=== PATIENT | female | born 1960 | race Caucasian/White ===

== ENCOUNTER → 2017-06-30 | Outpatient (CLI) | payer OTHER, BC ==
[~2017-06-30] MED LIST: ACHD5005 PO; CEFD300C PO; ESTR1TAB24 PO
== END ==
LOC: RAD 07:24
PROVIDERS: ATTEND Nurse Practitioner
DX: Z12.31 Encounter for screening mammogram for malignant neoplasm of breast (principal)
CPT/HCPCS: 77067

== ENCOUNTER → 2018-07-05 | Outpatient (CLI) | payer OTHER, BC ==
--- NOTE | 2018-07-05 13:23 | Diagnostic Imaging Report ---
INDICATION: Screening for osteoporosis. COMPARISON: None. FINDINGS: AP Spine L1-L4: [BMD (g/cm2): 1.210] [T-Score: 0.1] [Z-Score: 0.3] [BMD Previous: ] [BMD % Change: ] LT Hip Neck: [BMD (g/cm2): 1.117] [T-Score: 0.6] [Z-Score: 1.2] LT Hip Total: [BMD (g/cm2):1.225] [T-Score:1.7] [Z-Score: 2.0] [BMD Previous: ] [BMD % Change: ] RT Hip Neck: [BMD (g/cm2):1.105] [T-Score:0.5] [Z-Score:1.1] RT Hip Total: [BMD (g/cm2):1.153] [T-score:1.2] [Z-Score:1.4] [BMD Previous: ] [BMD % Change: ] *Indicates significant change from prior examination based on 95% confidence level. World Health Organization criteria for BMD interpretation classify patients as Normal (T-score at or above -1.0), Osteopenic (T-score between -1.0 and -2.5) or Osteoporotic (T-score at or below -2.5). LIMITATIONS AND MODIFICATION: None. FRACTURE RISK (FRAX SCORE): The ten year probability of (%): Major Osteoporotic Fracture: [ ] Hip Fracture: [ ] IMPRESSION: 1. The bone mineral density of the hips and spine is within normal limits. 2. See below National Osteoporosis Foundation guidelines on when to potentially initiate pharmacologic therapy. Based on the National Osteoporosis Foundation Guidelines, pharmacologic treatment should be initiated in any of the following, unless clinical conditions suggest otherwise: * Any patient with prior fragility fracture of the hip or vertebrae. A spine fracture indicates 5X risk for subsequent spine fracture and 2X risk for subsequent hip fracture. * Osteoporosis (T-score <-2.5). * Postmenopausal women and men age 50 and older with low bone mass/osteopenia (T-score between -1.0 and -2.5) by DXA and 10-year major osteoporotic fracture greater than 20% or a 10-year probability of hip fracture greater than 3%. These fracture risks are supplied above in the FRAX score, if applicable. * Clinician judgement and/or patient preferences may indicate treatment for people with 10-year fracture probabilities above or below these levels. Dictated by: Dictated on workstation # [id number]
--- NOTE | 2018-07-05 20:15 | Diagnostic Imaging Report ---
INDICATION: Routine screening. Comparison is made with prior exams from 06/30/2017 and 06/07/2016. 2-D and 3-D bilateral screening mammography was performed with computer-aided detection (CAD) system. FINDINGS: Both breasts are heterogeneously dense, limiting the sensitivity of mammography. The parenchymal pattern is stable. No mass or malignant-appearing microcalcifications are seen. The axillae are unremarkable. IMPRESSION: No mammographic features suspicious for malignancy are identified. ACR BI-RADS Category 1: Negative. Result letter will be mailed to the patient. Note: At least 10% of breast cancer is not imaged by mammography. Dictated by: Dictated on workstation # [id number]
== END ==
LOC: RAD 08:00
PROVIDERS: ATTEND Nurse Practitioner
DX: Z13.820 Encounter for screening for osteoporosis (principal); Z12.31 Encounter for screening mammogram for malignant neoplasm of breast; Z01.419 Encounter for gynecological examination (general) (routine) without abnormal findings
CPT/HCPCS: 77067; 77080

== ENCOUNTER → 2019-07-08 | Outpatient (CLI) | payer OTHER, BC ==
--- NOTE | 2019-07-08 09:11 | Diagnostic Imaging Report ---
INDICATION: Screening. TECHNIQUE: The current study was also evaluated with a Computer Aided Detection (CAD) system. 3-D Tomographic imaging was also performed. COMPARISON: 06/30/2017 and 06/07/2016. FINDINGS: The fibroglandular tissue is heterogeneously dense bilaterally. There are benign type calcifications. There is no dominant mass, spiculated lesion, or suspicious calcification identified. The skin, nipples, and axillae are unremarkable. IMPRESSION: Benign findings. ACR BI-RADS Category 2: Benign findings. Result letter will be mailed to the patient. Note: At least 10% of breast cancer is not imaged by mammography. Dictated by: Dictated on workstation # [id number]
== END ==
LOC: RAD 07:19
PROVIDERS: ATTEND Nurse Practitioner
DX: Z12.31 Encounter for screening mammogram for malignant neoplasm of breast (principal)
CPT/HCPCS: 77067

== ENCOUNTER → 2019-07-09 | Outpatient (CLI) | payer OTHER, BC ==
[2019-07-09 11:59] LABS: BUN/CREATININE RATIO 23; CREATININE SERUM 0.78 MG/DL (0.60-1.30); GFR ESTIMATED > 60
== END ==
LOC: LAB 11:31
PROVIDERS: ATTEND Family Medicine
DX: Q07.00 Arnold-Chiari syndrome without spina bifida or hydrocephalus (principal)
CPT/HCPCS: 36415; 82565; 84520

== ENCOUNTER → 2019-07-10 | Outpatient (CLI) | payer OTHER, BC ==
[~2019-07-10] MED LIST changes: +CATHETER FLUSH 10 ML SYR IV PRN; +HOLD METFORMIN - RECEIVED CONTRAST 20 ML VIAL IV SCH; +IOHEXOL 350 MG/ML 100 ML (OMNIPAQUE 350) VIAL IV ONE; +NS 100 ML (IVPB) BAG IV ONE
--- NOTE | 2019-07-10 09:06 | Diagnostic Imaging Report ---
PROCEDURE: CT angiography of the head and CT angiography of the neck with and without contrast. TECHNIQUE: Contiguous noncontrast images were obtained from the skull base through the vertex. After intravenous contrast administration, helical CT angiography of the neck was performed. Source data was reformatted into 3D MIP projections. Delayed post contrast acquisition was also obtained. Auto Exposure Controls were utilized during the CT exam to meet ALARA standards for radiation dose reduction. INDICATION: Follow-up Chiari malformation. COMPARISON: MRI brain on 06/11/2013. FINDINGS: CTA Neck: The visualized portions of the aortic arch demonstrate no evidence of aneurysm or dissection. There is conventional branching pattern of the great vessels of the aorta. The brachiocephalic artery is normal in course and caliber. The right and left common carotid origins are unremarkable. The origin of the left subclavian artery is patent. The common carotid arteries and internal carotid arteries demonstrate a normal course and caliber, without evidence of stenosis or dissection in the carotid systems. The external carotid arteries are patent and unremarkable. The vertebral arteries are codominant. The origin of the right vertebral artery is seen and is unremarkable. The origin of the left vertebral artery is seen and is unremarkable. There is no focal stenosis seen within the neck. There is no dissection. The vertebral arteries are well visualized to up to the level of the basilar artery. The osseous structures of the cervical spine are unremarkable. Mild degenerative changes are present in the cervical spine, greatest at C5-C6. Included views through the lung apices demonstrate no focal consolidation. CTA brain: The bilateral distal internal carotid arteries are well visualized without significant stenosis. No stenosis is seen in the bilateral anterior, middle, and posterior cerebral arteries. No evidence of aneurysm the ramona of Nixon. In the posterior circulation, both of the vertebral arteries demonstrate normal opacification. The vertebral arteries are codominant. Both the right and left PICA arteries are identified. The basilar artery is normal in course and caliber. The terminal branch vessels including the superior cerebellar arteries unremarkable. CT head: The ventricles and cortical sulci are age-appropriate. There is no midline shift or mass-effect. No acute intracranial hemorrhage is seen. There is no CT evidence of acute territorial ischemia. No focal masses or collections are present. There is similar appearance of slightly low-lying cerebellar tonsils, extending approximately 5-6 mm below the foramen magnum. The calvarium is intact. The visualized paranasal sinuses are clear. IMPRESSION: 1. No stenosis or aneurysm in the ramona of Nixon. 2. No stenosis or dissection the bilateral carotid and vertebral arteries. 3. Similar appearance of low-lying cerebellar tonsils, which can be seen with Chiari malformation. 4. No large acute territorial ischemia, mass, or hemorrhage. No evidence of hydrocephalus. Dictated by: Dictated on workstation # [id number]
== END ==
LOC: RAD 07:46
PROVIDERS: ATTEND Family Medicine
DX: Q07.00 Arnold-Chiari syndrome without spina bifida or hydrocephalus (principal)
CPT/HCPCS: 70496; 70498

== ENCOUNTER → 2020-02-03 | Outpatient (CLI) | payer OTHER, BC ==
[~2020-02-03] MED LIST changes: -CATHETER FLUSH 10 ML SYR IV PRN; -HOLD METFORMIN - RECEIVED CONTRAST 20 ML VIAL IV SCH; -IOHEXOL 350 MG/ML 100 ML (OMNIPAQUE 350) VIAL IV ONE; -NS 100 ML (IVPB) BAG IV ONE
--- NOTE | 2020-02-03 13:15 | Diagnostic Imaging Report ---
INDICATION: Pelvic pain. TIME OF EXAM: 12:41 PM. TECHNIQUE: An AP view of the pelvis and multiple views of the bilateral hips were obtained. FINDINGS: The femoroacetabular alignment is normal bilaterally. The joint spaces are well-maintained. Both femoral heads and necks are intact. The rami are intact. No fractures are seen. IMPRESSION: No acute bony abnormality is detected. Dictated by: Dictated on workstation # [id number]
== END ==
LOC: RAD 12:17
PROVIDERS: ATTEND Family Medicine
DX: M25.552 Pain in left hip (principal); M25.551 Pain in right hip; R10.2 Pelvic and perineal pain
CPT/HCPCS: 73523

== ENCOUNTER → 2020-10-14 | Outpatient (CLI) | payer OTHER, BC ==
--- NOTE | 2020-10-14 15:59 | Diagnostic Imaging Report ---
INDICATION: Routine screening. COMPARISON: 07/08/2019 and 07/05/2018. TECHNIQUE: 2D and 3D bilateral screening mammography was performed with CAD. FINDINGS: Both breasts are heterogeneously dense, limiting the sensitivity of mammography. No mass or malignant appearing microcalcifications are seen. There are benign calcifications noted. The axillae are unremarkable. IMPRESSION: No mammographic features suspicious for malignancy are identified. ACR BI-RADS Category 2: Benign findings. Result letter will be mailed to the patient. Note: At least 10% of breast cancer is not imaged by mammography. Dictated by: Dictated on workstation # [id number]
== END ==
LOC: RAD 07:30
PROVIDERS: ATTEND Surgery
DX: Z12.31 Encounter for screening mammogram for malignant neoplasm of breast (principal)
CPT/HCPCS: 77063; 77067

== ENCOUNTER → 2021-10-15 | Outpatient (CLI) | payer OTHER, BC ==
--- NOTE | 2021-10-15 09:39 | Diagnostic Imaging Report ---
INDICATION: Routine screening. COMPARISON: 10/14/2020 and 07/08/2019. TECHNIQUE: 2D and 3D bilateral screening mammography was performed with CAD. FINDINGS: Both breasts are heterogeneously dense, limiting the sensitivity of mammography. The parenchymal pattern is stable. No mass or malignant-appearing microcalcifications are seen. The axillae are unremarkable. IMPRESSION: No mammographic features suspicious for malignancy are identified. ACR BI-RADS Category 1: Negative. Result letter will be mailed to the patient. Note: At least 10% of breast cancer is not imaged by mammography. Dictated by: Dictated on workstation # [id number]
== END ==
LOC: RAD 07:30
PROVIDERS: ATTEND Surgery
DX: Z12.31 Encounter for screening mammogram for malignant neoplasm of breast (principal)
CPT/HCPCS: 77063; 77067

== ENCOUNTER → 2022-01-28 | Outpatient (CLI) | payer OTHER, BC ==
--- NOTE | 2022-01-28 08:28 | Diagnostic Imaging Report ---
INDICATION: Chronic low back pain with pain extending into the left leg. Time of Exam: 7:56 AM Multiple views of the sacroiliac joints were obtained. There is no evidence of ankylosis. No significant sclerosis or evidence of osseous erosive changes are seen. IMPRESSION: Unremarkable SI joints. Dictated by: Dictated on workstation # [id number]
--- NOTE | 2022-01-28 08:31 | Diagnostic Imaging Report ---
Indication: Low back pain AP and lateral views of lumbar spine are obtained with comparison made to study of 06/06/2013. There is slight anterolisthesis of L4 on L5 which is a change from previous study. Otherwise lumbar spinal curvature and alignment are unremarkable. Vertebral body heights and disc spaces are maintained. There is also mild increase in sclerosis about the L4-L5 facet joints, greater on the right. No fracture is seen. IMPRESSION: Mild progression of degenerative findings at the L4-L5 disc and facet joints. This could be further characterized with MRI if indicated. Otherwise, no acute abnormality is detected. Dictated by: Dictated on workstation # [id number]
== END ==
LOC: RAD 07:33
PROVIDERS: ATTEND Family Medicine
DX: M53.3 Sacrococcygeal disorders, not elsewhere classified (principal); M47.816 Spondylosis without myelopathy or radiculopathy, lumbar region
CPT/HCPCS: 72100; 72202

== ENCOUNTER 2022-06-20 20:02 | Emergency (ER) | payer OTHER, BC ==
[2022-06-20] MEDS ORDERED: NITROGLYCERIN 0.4 MG SL TABS BTL 25'S SL PRN (20:15)
[2022-06-20] MEDS ORDERED: ASPIRIN 81 MG CHEW (CHILDREN'S ASA) PO ONE (20:15)
[2022-06-20 20:17] LABS: BASOPHILS # (AUTO) 0.1 10^3/uL (0.0-0.1); BASOPHILS % (AUTO) 1 % (0-10); EOSINOPHILS # (AUTO) 0.2 10^3/uL (0.0-0.3); EOSINOPHILS % (AUTO) 2 % (0-10); HEMATOCRIT 40 % (35-52); LYMPHOCYTES # (AUTO) 2.3 10^3/uL (1.0-4.0); LYMPHOCYTES % (AUTO) 28 % (12-44); MEAN CORPUSCULAR HEMOGLOBIN 30 pg (25-34); MEAN CORPUSCULAR HGB CONC 33 g/dL (32-36); MEAN CORPUSCULAR VOLUME 93 fL (80-99); MEAN PLATELET VOLUME 10.3 fL (9.0-12.2); MONOCYTES # (AUTO) 0.7 10^3/uL (0.0-1.0); MONOCYTES % (AUTO) 8 % (0-12); NEUTROPHILS % (AUTO) 61 % (42-75); PLATELET COUNT 297 10^3/uL (130-400); WHITE BLOOD COUNT 8.3 10^3/uL (4.3-11.0)
--- NOTE | 2022-06-20 20:20 | ED Chest Pain ---
General Chief Complaint: Chest Pain Stated Complaint: CHEST TIGHTNESS Nursing Triage Note: PT ARRIVAL TO ER VIA PRIVATE VEHICLE FROM HOME WITH COMPLAINT OF CHEST PAIN, THAT STARTED LAST MONDAY. PATIENT STATES THAT IT STARTED A UPPER ABDOMINAL PAIN BUT THEN CHANGED TO MORE OF A CHEST PAIN THAT GOES INTO BACK. PAIN COMES AND GO AND USUALLY IMPROVES SOME WITH FOOD. PAIN AT A 6/10 CURRENTLY, BUT WAS AT A 10/10 EARLIER TODAY. PAIN IS A HEAVINESS LIKE PAIN. Source: patient History of Present Illness Date Seen by Provider: Jun 20, 2022 Time Seen by Provider: 20:05 Initial Comments PT ARRIVES VIA POV FROM HOME C/O CHEST PAIN SINCE LAST Monday06/16/22 PAIN IS IN EPIGASTRIC AREA, AND IN CENTER OF CHEST AND RADIATES THROUGH TO BACK--PAIN IS ALL ACROSS HER UPPER BACK AND SHOULDER BLADES. PAIN COMES AND GOES. IS A TIGHTNESS AND HEAVINESS IN CHEST AND ALOT OF PRESSURE RATES PAIN 10/10 AT WORST, RATES 7/10 NOW NOTHING WORSENS PAIN, THINKS EATING A LITTLE FOOD MAY MAKE THE EPIGASTRIC PAIN A LITTLE BETTER + NAUSEA, NO VOMITING NO SHORTNESS OF BREATH NO SWEATS NO SWELLING IN LEGS/FEET OR PAIN IN CALVES NO PALPITATIONS NO DIZZINESS OR SYNCOPE HAD SAME TYPE OF PAIN YEARS AGO AND HAD A CARDIAC CATH, WHICH WAS NORMAL, PER PT PT TAKES MELOXICAM DAILY FOR ARTHRITIS ALSO CURRENTLY TAKING PHENTERMINE, ESTRADIOL, ACYCLOVIR, CETIRIZINE FOR ALLERGE S. DOES NOT TAKE ASPIRIN HAS NOT SOUGHT CARE UNTIL TONIGHT SYMPTOMS NO DIFFERENT TONIGHT IN ANY WAY HAS NOT TAKEN ANYTHING FOR SYMPTOMS STATES SHE CAME TONIGHT "BECAUSE MY 'S GOING TO BE OUT OF TOWN UNTIL MONDAY"--HE CAME WITH HER TONIGHT ALSO STATES HER DAUGHTER TOLD HER TO GO TO ER TONIGHT NO FIRST DEGREE RELATIVES WITH HEART DISEASE. GRANDPARENTS HAD HEART DISEASE > AGE 50 PCP: DR. GACRÍA--SAW 2-3 WEEKS AGO FOR ROUTINE FOLLOW UP Allergies and Home Medications Allergies Coded Allergies: Sulfa (Sulfonamide Antibiotics) (Verified Allergy, Unknown, NAUSEA VOMITIN, 11/22/13) codeine (Unverified Adverse Reaction, Unknown, NAUSEA VOMITING, 11/22/13) morphine (Unverified Adverse Reaction, Unknown, NAUSEA VOMITIN, 11/22/13) Patient Home Medication List Home Medication List Reviewed: Yes Cefdinir (Omnicef Capsule) 300 Mg Capsule, 300 MG PO BID, (Reported) Entered as Reported by: TALA GRULLON on 11/22/13 1223 Estradiol (Estradiol) 1 Mg Tablet, 2 MG PO, (Reported) Entered as Reported by: LENIN JACKMAN on 09/27/12 1035 Hydrocodone Bit/Acetaminophen (Lortab 5 Mg Tablet) 1 Tab Tab, 1-2 TAB PO Q4H PRN for PAIN Prescribed by: FELISA BARTON on 11/28/13 1232 Pantoprazole Sodium (Protonix) 40 Mg Tablet.dr, 40 MG PO DAILY Prescribed by: JONA MIRANDA on 06/20/22 2222 Review of Systems Review of Systems Constitutional: no symptoms reported EENTM: No Symptoms Reported Respiratory: No Symptoms Reported Cardiovascular: See HPI, Chest Pain; Denies Edema, Denies Irregular Heart Rate, Denies Lightheadedness, Denies Palpitations, Denies Syncope Gastrointestinal: See HPI, Abdominal Pain, Nausea; Denies Vomiting Genitourinary: No Symptoms Reported Musculoskeletal: see HPI, back pain Skin: no symptoms reported Psychiatric/Neurological: No Symptoms Reported Endocrine: No Symptoms Reported Hematologic/Lymphatic: No Symptoms Reported Past Phlitcy-Qskwdn-Mbljsf Hx Patient Social History Tobacco Use?: Yes Tobacco type used: Cigarettes Smoking Status: Former Smoker Use of E-Cig and/or Vaping dev: No Substance use?: No Alcohol Use?: Yes Alcohol type: Wine Alcohol Frequency: Once in a while Pt feels they are or have been: No Immunizations Up To Date Influenza Vaccine Up-to-Date: Yes; Up-to-Date COVID19 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: [employer] Seasonal Allergies Seasonal Allergies: Yes Past Medical History Surgeries: Yes (SEE BELOW) Cardiac, Gallbladder, Hysterectomy, Oophorectomy, Orthopedic Respiratory: No Cardiac: No Neurological: No Reproductive Disorders: No (total hysterectomy) CUSTOMER ENGAGEMENT MANAGER History: Hysterectomy, Menopausal Genitourinary: No Gastrointestinal: No Musculoskeletal: Yes Arthritis Endocrine: No HEENT: No Cancer: No Psychosocial: No Integumentary: Yes Herpes Blood Disorders: No Family Medical History PAST SURGICAL HISTORY: -HYSTERECTOMY/ BILATERAL SALPINGO-OOPHORECTOMY -RIGHT KNEE SCOPE -CHOLECYSTECTOMY -CARDIAC CATH BY DR. TOLBERT 05/2008--NORMAL. -LIPOMA OF BACK REMOVED 11/[address] GRAHAM Physical Exam Vital Signs Vital Signs - First Documented 06/20/22 20:05 Temp 36.6 Pulse 89 Resp 18 B/P (MAP) 158/101 (120) Pulse Ox 99 O2 Delivery Room Air Capillary Refill : Less Than 3 Seconds Height, Weight, BMI Height: 5'7.00" Weight: 180lbs. oz. 81.853720tl; BMI Method: General Appearance: No Apparent Distress, WD/WN HEENT: PERRL/EOMI Neck: Normal Inspection Respiratory: Chest Non Tender, Normal Breath Sounds, No Accessory Muscle Use, No Respiratory Distress Cardiovascular: Regular Rate, Rhythm, No Edema, No JVD, No Murmur, Normal Peripheral Pulses Gastrointestinal: Non Tender, Soft Extremity: Normal Capillary Refill, Normal Inspection, Normal Range of Motion, Non Tender, No Calf Tenderness, No Pedal Edema Neurologic/Psychiatric: Alert, Oriented x3, No Motor/Sensory Deficits, Normal Mood/Affect, licensed nurse practitioner II-XII Norm as Tested Skin: Normal Color, Warm/Dry; No Rash Progress/Results/Core Measures Results/Orders Lab Results Laboratory Tests Test 06/20/22 20:09 Range/Units White Blood Count 8.3 4.3-11.0 10^3/uL Red Blood Count 4.27 3.80-5.11 10^6/uL Hemoglobin 13.0 11.5-16.0 g/dL Hematocrit 40 35-52 % Mean Corpuscular Volume 93 80-99 fL Mean Corpuscular Hemoglobin 30 25-34 pg Mean Corpuscular Hemoglobin Concent 33 32-36 g/dL Red Cell Distribution Width 12.8 10.0-14.5 % Platelet Count 297 130-400 10^3/uL Mean Platelet Volume 10.3 9.0-12.2 fL Immature Granulocyte % (Auto) 0 % Neutrophils (%) (Auto) 61 42-75 % Lymphocytes (%) (Auto) 28 12-44 % Monocytes (%) (Auto) 8 0-12 % Eosinophils (%) (Auto) 2 0-10 % Basophils (%) (Auto) 1 0-10 % Neutrophils # (Auto) 5.0 1.8-7.8 10^3/uL Lymphocytes # (Auto) 2.3 1.0-4.0 10^3/uL Monocytes # (Auto) 0.7 0.0-1.0 10^3/uL Eosinophils # (Auto) 0.2 0.0-0.3 10^3/uL Basophils # (Auto) 0.1 0.0-0.1 10^3/uL Immature Granulocyte # (Auto) 0.0 0.0-0.1 10^3/uL Prothrombin Time 12.4 12.2-14.7 SEC INR Comment 0.9 0.8-1.4 Activated Partial Thromboplast Time 27 24-35 SEC D-Dimer <= 0.27 0.00-0.49 UG/ML Sodium Level 140 135-145 MMOL/L Potassium Level 4.1 3.6-5.0 MMOL/L Chloride Level 105 98-107 MMOL/L Carbon Dioxide Level 24 21-32 MMOL/L Anion Gap 11 5-14 MMOL/L Blood Urea Nitrogen 19 H 7-18 MG/DL Creatinine 0.80 0.60-1.30 MG/DL Estimat Glomerular Filtration Rate 85 BUN/Creatinine Ratio 24 Glucose Level 102 70-105 MG/DL Calcium Level 9.0 8.5-10.1 MG/DL Corrected Calcium 9.0 8.5-10.1 MG/DL Magnesium Level 2.1 1.6-2.4 MG/DL Total Bilirubin 0.3 0.1-1.0 MG/DL Aspartate Amino Transf (AST/SGOT) 20 5-34 U/L Alanine Aminotransferase (ALT/SGPT) 8 0-55 U/L Alkaline Phosphatase 69 40-136 U/L Total Creatine Kinase 59 29-168 U/L Creatine Kinase MB 0.7 <6.6 NG/ML Myoglobin 26.9 10.0-92.0 NG/ML Troponin I < 0.028 <0.028 NG/ML B-Type Natriuretic Peptide < 10.0 <100.0 PG/ML Total Protein 7.0 6.4-8.2 GM/DL Albumin 4.0 3.2-4.5 GM/DL Amylase Level 59 25-125 U/L Lipase 28 8-78 U/L My Orders Orders - JONA MIRANDA DO Ekg Tracing (06/20/22 20:04) Cbc With Automated Diff (06/20/22 20:05) Magnesium (06/20/22 20:05) Chest 1 View, Ap/Pa Only (06/20/22 20:05) Ekg Tracing (06/20/22 20:05) Comprehensive Metabolic Panel (06/20/22 20:05) Myoglobin Serum (06/20/22 20:05) Protime With Inr (06/20/22 20:05) Partial Thromboplastin Time (06/20/22 20:05) O2 (06/20/22 20:05) Monitor-Rhythm Ecg Trace Only (06/20/22 20:05) Ed Iv/Invasive Line Start (06/20/22 20:05) Creatine Kinase (06/20/22 20:05) Creatine Kinase Mb (06/20/22 20:05) Lipase (06/20/22 20:05) Amylase (06/20/22 20:05) Bnp Temitope (06/20/22 20:05) Fibrin Degradation Products (06/20/22 20:05) Troponin I Temitope (06/20/22 20:05) Nitroglycerin 0.4 Mg Btl 25's (Nitrostat (06/20/22 20:15) Aspirin Chewable Tablet (Baby Aspirin Ch (06/20/22 20:15) Ct Yazmin Chest/Noang Abd-Pelv W (06/20/22 20:59) Iohexol Injection (Omnipaque 350 Mg/Ml 1 (06/20/22 21:15) Ns (Ivpb) (Sodium Chloride 0.9% Ivpb Bag (06/20/22 21:15) Sodium Chloride Flush (Catheter Flush Sy (06/20/22 21:15) Pantoprazole Injection (Protonix Injecti (06/20/22 21:45) Fentanyl Inj (Sublimaze Injection) (06/20/22 21:45) Ondansetron Injection (Zofran Injectio (06/20/22 22:15) Medications Given in ED Current Medications Medications Dose Ordered Sig/Maikel Route Start Time Stop Time Status Last Admin Dose Admin Aspirin 324 mg ONCE ONCE PO 06/20/22 20:15 06/20/22 20:16 DC 06/20/22 20:30 324 MG Fentanyl Citrate 50 mcg ONCE ONCE IVP 06/20/22 21:45 06/20/22 21:46 DC 06/20/22 21:46 50 MCG Iohexol 100 ml ONCE ONCE IV 06/20/22 21:15 06/20/22 21:16 DC 06/20/22 21:20 85 ML Nitroglycerin 0.4 mg UD PRN SL 06/20/22 20:15 06/20/22 20:31 0.4 MG Ondansetron HCl 4 mg ONCE ONCE IVP 06/20/22 22:15 06/20/22 22:16 DC 06/20/22 22:13 4 MG Pantoprazole 40 mg ONCE ONCE IV 06/20/22 21:45 06/20/22 21:46 DC 06/20/22 21:46 40 MG Sodium Chloride 10 ml NEEDED PRN IV 06/20/22 21:15 06/20/22 21:20 10 ML Sodium Chloride 100 ml ONCE ONCE IV 06/20/22 21:15 06/20/22 21:16 DC 06/20/22 21:20 70 ML Vital Signs/I&O 06/20/22 20:05 Temp 36.6 Pulse 89 Resp 18 B/P (MAP) 158/101 (120) Pulse Ox 99 O2 Delivery Room Air Blood Pressure Mean: 120 Progress Progress Note : Progress Note GIVEN: -ASPIRIN -NTG X 1-NO RELIEF, RATED PAIN 5/10 PRIOR TO NTG, AND STILL RATING 5/10. BP DROPPED FROM 135 TO 112 TO 105 SYSTOLIC, SO NO FURTHER NTG GIVEN . BP BACK UP TO NORMAL RANGE WITHOUT TREATMENT -PROTONIX -FENTANYL -ZOFRAN--PT DID HAVE NAUSEA AND DRY HEAVES AFTER FENTANYL--SHE STATES THIS IS COMMON WHEN SHE HAS PAIN MEDICATIONS. SYMPTOMS RESOLVED WITH ZOFRAN. OFFERED AND ENCOURAGED ADMIT, AND PT DECLINES, STATING SHE WANTS TO FOLLOW UP WITH DR. GORE FOR OUTPATIENT TESTING. RETURN PRECAUTIONS DISCUSSED WITH PT Initial ECG Impression Date: Jun 20, 2022 Initial ECG Impression Time: 20:08 Initial ECG Rate: 90 Initial ECG Rhythm: Normal Sinus (PAC'S, PVC'S) Diagnostic Imaging Comments CXR--PER RADIOLOGIST REPORT AT 2036 Heart size and pulmonary vascularity are normal. Lungs are clear. There are no effusions or pneumothoraces. IMPRESSION: No acute abnormalities in the chest CT CHEST ANGIOGRAM /ABDOMEN-PELVIS--PER RADIOLOGIST REPORT AT 2134 CTA chest, abdomen and pelvis Thin axial sections through the chest, abdomen and pelvis are obtained following intravenous contrast bolus. Multiplanar MIP images were reconstructed and reviewed. All CT scans use one or more of the following dose optimizing techniques: automated exposure control, MA and/or KvP adjustment based on patient size and exam type or iterative reconstruction. The aorta is normal. There are no pulmonary emboli. There is no hilar or mediastinal lymphadenopathy. The liver appears normal. Gallbladder is surgically absent. Portal vein is patent. Common duct is not dilated. Pancreas is normal. Spleen is not enlarged. Adrenals are normal. Kidneys appear normal. Aorta and IVC appear normal. There is diverticulosis of the colon but no evidence of diverticulitis. Small bowel is not dilated. There is no appendicitis. There is no intraperitoneal free air or free fluid. Urinary bladder is normal. IMPRESSION: Unremarkable CT chest, abdomen and pelvis. Reviewed: Reviewed by [place] Departure Communication (Admissions) 2136--SPOKE WITH DR. GORE. ADVISES TO TRY IV PAIN MEDICATION, AND IF PAIN RESOLVES, MAY SEND HOME AND WILL SCHEDULE OUTPATIENT STRESS TEST. IF STILL HAVING PAIN, WILL ADMIT AND DO STRESS TEST TOMORROW AND/OR CARDIAC CATH TOMOR ROW. Impression Primary Impression: Chest pain Disposition: HOME, SELF-CARE Condition: Stable Departure-Patient Inst. Decision time for Depature: 22:18 Referrals: PRIMO GARCÍA MD (PCP/Family) Primary Care Physician JAQUELIN GORE MD Patient Instructions: Chest Pain (DC) Add. Discharge Instructions: HOME, REST TAKE 81 MG COATED ASPIRIN DAILY CLEAR LIQUIDS--WATER, BROTH, JELLO, GATORADE BRATS --BANANAS, RICE, APPLESAUCE, TOAST, SALTINES FOLLOW UP WITH DR. GORE FOR FURTHER CARE--CALL OFFICE IN THE MORNING FOR APPOINTMENT RETURN TO ER IF SYMPTOMS WORSEN All discharge instructions reviewed with patient and/or family. Voiced understanding. Scripts Pantoprazole Sodium (Protonix) 40 Mg Tablet. 40 MG PO DAILY, #15 TAB Prov: JONA MIRANDA DO 06/20/22 JONA MIRANDA DO Jun 20, 2022 20:20
--- NOTE | 2022-06-20 20:23 | Diagnostic Imaging Report ---
Indication: Chest pain Portable chest 11:07 PM Heart size and pulmonary vascularity are normal. Lungs are clear. There are no effusions or pneumothoraces. IMPRESSION: No acute abnormalities in the chest Dictated by: Dictated on workstation # [id number]
[2022-06-20 20:38] LABS: BILIRUBIN,TOTAL 0.3 MG/DL (0.1-1.0); CREATININE SERUM 0.8 MG/DL (0.60-1.30); MAGNESIUM 2.1 MG/DL (1.6-2.4); POTASSIUM 4.1 MMOL/L (3.6-5.0)
[2022-06-20 20:46] LABS: CREATINE KINASE MB 0.7 NG/ML (<6.6)
[2022-06-20 20:49] LABS: INR 0.9 (0.8-1.4); PROTHROMBIN TIME PATIENT 12.4 SEC (12.2-14.7)
[2022-06-20] MEDS ORDERED: CATHETER FLUSH 10 ML SYR IV PRN (21:15)
[2022-06-20] MEDS ORDERED: IOHEXOL 350 MG/ML 100 ML (OMNIPAQUE 350) VIAL IV ONE (21:15)
[2022-06-20] MEDS ORDERED: NS 100 ML (IVPB) BAG IV ONE (21:15)
--- NOTE | 2022-06-20 21:30 | Diagnostic Imaging Report ---
INDICATION: CP, ABD PAIN CTA chest, abdomen and pelvis Thin axial sections through the chest, abdomen and pelvis are obtained following intravenous contrast bolus. Multiplanar MIP images were reconstructed and reviewed. All CT scans use one or more of the following dose optimizing techniques: automated exposure control, MA and/or KvP adjustment based on patient size and exam type or iterative reconstruction. The aorta is normal. There are no pulmonary emboli. There is no hilar or mediastinal lymphadenopathy. The liver appears normal. Gallbladder is surgically absent. Portal vein is patent. Common duct is not dilated. Pancreas is normal. Spleen is not enlarged. Adrenals are normal. Kidneys appear normal. Aorta and IVC appear normal. There is diverticulosis of the colon but no evidence of diverticulitis. Small bowel is not dilated. There is no appendicitis. There is no intraperitoneal free air or free fluid. Urinary bladder is normal. IMPRESSION: Unremarkable CT chest, abdomen and pelvis. Dictated by: Dictated on workstation # [id number]
[2022-06-20] MEDS ORDERED: fentaNYL INJ 100 MCG/2 ML AMP IVP ONE (21:45)
[2022-06-20] MEDS ORDERED: PANTOPRAZOLE 40 MG (PROTONIX) VIAL IV ONE (21:45)
[2022-06-20] MEDS ORDERED: ONDANSETRON 4 MG/2 ML (SDV) Z0FRAN IVP ONE (22:15)
[2022-06-20] MEDS ORDERED: PANT40TA2 PO ×2 (22:22→22:28)
[2022-06-20 22:29] VITALS: BP 125/75
== END 2022-06-20 22:38 | disposition home or self-care (01) ==
LOC: EDUNIT# 20:02 → ER 20:03
DX: R07.89 Other chest pain (principal); M19.90 Unspecified osteoarthritis, unspecified site; Z79.1 Long term (current) use of non-steroidal anti-inflammatories (NSAID); Z88.5 Allergy status to narcotic agent
CPT/HCPCS: 36415; 71045; 71275; 74177; 80053; 82150; 82550; 82553; 83690; 83735; 83874; 83880; 84484; 85025; 85379; 85610; 85730; 93005; 93041

== ENCOUNTER → 2022-11-07 | Outpatient (CLI) | payer OTHER, BC ==
[~2022-11-07] MED LIST changes: +PANT40TA2 PO
--- NOTE | 2022-11-07 18:31 | Diagnostic Imaging Report ---
TECHNIQUE: 3-D bilateral screening mammogram The current study was also evaluated with a Computer Aided Detection (CAD) system. COMPARISON: This study was compared to the prior exams of 10/15/2021, 10/14/2020 and 07/08/2019 At this time, there are no current complaints. FINDINGS: The fibroglandular tissue in both breasts is heterogeneously dense. This does limit the sensitivity of this exam. Overall, there does not appear to have been any significant change when compared to the prior study. No primary or secondary sign of malignancy is noted. IMPRESSION: There is no radiographic evidence for malignancy. BI-RADS CATEGORY: 1. NEGATIVE. ACR BI-RADS Category 1: Negative. Result letter will be mailed to the patient. Note: At least 10% of breast cancer is not imaged by mammography. Dictated by: Dictated on workstation # [id number]
== END ==
LOC: RAD 07:45
PROVIDERS: ATTEND Surgery
DX: Z12.31 Encounter for screening mammogram for malignant neoplasm of breast (principal)
CPT/HCPCS: 77063; 77067